=== PATIENT | male | born 1970 ===

== ENCOUNTER 2018-01-18 02:06 | Emergency (ER) | payer BC ==
[2018-01-18 02:32] VITALS: RESP 18
[2018-01-18] MEDS ORDERED: Sodium Chloride 0.9% 1,000 ML ONE (02:38)
[2018-01-18] MEDS ORDERED: Sodium Chloride 0.9% 1,000 ML IV ONE (02:39)
--- NOTE | 2018-01-18 03:15 | C.PDOC ---
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 Patient is also c/o cough for the past few days. Patient denies sore throat, earache, abdominal pain, nausea, vomiting, diarrhea, back pain, dysuria, hematuria. Patient with h/o of hemorrhoids also states he noticed minimal red blood today after having a bowel movement. Time Seen by Provider: 01/18/18 02:20 Chief Complaint (Nursing): Fever History Per: Patient History/Exam Limitations: no limitations Onset/Duration Of Symptoms: Hrs Current Symptoms Are (Timing): Still Present Location Of Pain: Throat Sick Contacts (Context): None Associated Symptoms: Fever, Chills, Cough Ear Symptoms: Bilateral: None Recent travel outside of the [place]: No Additional History Per: Patient Past Medical History Reviewed: Historical Data, Nursing Documentation, Vital Signs Vital Signs: Last Vital Signs Temp 103.1 F H 01/18/18 03:00 Pulse 102 H 01/18/18 02:11 Resp 18 01/18/18 02:11 BP 105/58 L 01/18/18 03:10 Pulse Ox 98 01/18/18 03:18 - Medical History PMH: No Chronic Diseases Surgical History: No Surg Hx Family History: States: Unknown Family Hx - Social History Hx Alcohol Use: Yes Hx Substance Use: No - Immunization History Hx Tetanus Toxoid Vaccination: No Hx Influenza Vaccination: No Hx Pneumococcal Vaccination: No Review Of Systems Constitutional: Positive for: Fever, Chills ENT: Negative for: Ear Pain, Nose Discharge, Nose Congestion, Throat Pain Cardiovascular: Negative for: Chest Pain Respiratory: Positive for: Cough. Negative for: Shortness of Breath Gastrointestinal: Positive for: Melena, Hematochezia. Negative for: Nausea, Vomiting, Abdominal Pain, Diarrhea, Rectal Pain Genitourinary: Negative for: Dysuria, Hematuria Musculoskeletal: Negative for: Neck Pain Skin: Negative for: Rash Neurological: Negative for: Weakness, Numbness, Headache, Dizziness Physical Exam - Physical Exam Appears: Non-toxic, No Acute Distress Skin: Normal Color, Warm, Dry Head: Atraumatic, Normacephalic Eye(s): bilateral: Normal Inspection, PERRL, EOMI Ear(s): Bilateral: Normal Nose: Normal, No Discharge Oral Mucosa: Moist Neck: Normal ROM, Supple (no meningeal signs) Chest: Symmetrical, No Tenderness Cardiovascular: Rhythm Regular Respiratory: Normal Breath Sounds, No Rhonchi, No Wheezing Gastrointestinal/Abdominal: Soft, No Tenderness Rectal: No Blood Streaked Stool, Hemorrhoids, Other (kofi fisurea at 4 o'clock position with small skin tag) Extremity: Normal ROM, No Tenderness, No Swelling Neurological/Psych: Oriented x3, Normal Speech, Normal Cognition Gait: Steady ED Course And Treatment - Laboratory Results Result Diagrams: 01/18/18 03:12 01/18/18 03:12 O2 Sat by Pulse Oximetry: 98 (ON RA) Pulse Ox Interpretation: Normal - Radiology CXR: Interpreted by Me, Viewed By Me (and dr bolden) CXR Interpretation: Yes: Infiltrates (?RLL). No: Pnemothorax Progress Note: Plan: - Labs. - CXR. - IV fluids. - Tylenol 975 mg PO/ motrin 600 mg. - UA. - Infleunza A B. - Rapid strep group\. All labs reviewed icl CXR and d/w patient. Pt is stable in no respiratory distress at this time,temp improved. Clinical signs and symptoms are not suggestive of sepsis, meningitis, UTI, intra-abdominal pathology, or cellulitis. Patient will be discharged home on PO abx, and instructed to follow up with his/her physician in 1-2 days without fail. Patient was instructed to return for any worsening symptoms, persistent fever, neck pain, SOB or vomiting. Reassessment Condition: Improved Disposition Counseled Patient/Family Regarding: Diagnosis, Need For Followup, Rx Given - Disposition Referrals: [facility] [Outside] Disposition Time: 04:13 Condition: STABLE Additional Instructions: Please increase PO fluids Take all prescribed medications Follow up with PMD or in clinic Advise SITZ baths/ High fiber in diet Return to ER if worse Prescriptions: Azithromycin [Zithromax] 250 mg PO DAILY #6 tab Benzonatate [Tessalon Perles] 100 mg PO TID #20 sgl Ibuprofen [Motrin] 600 mg PO Q6H #24 tab Instructions: Pneumonia in Adults Forms: [facility] (Latvian), Work Excuse Print Language: MARTINIQUAIS - Clinical Impression Clinical Impression: Pneumonia - 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 - Scribe Statement The provider has reviewed the documentation as recorded by the Scribe Daniel Hursta All medical record entries made by the Scribjennifer were at my direction and personally dictated by me. I have reviewed the chart and agree that the record accurately reflects my personal performance of the history, physical exam, medical decision making, and the department course for this patient. I have also personally directed, reviewed, and agree with the discharge instructions and disposition.
[2018-01-18 03:16] LABS: URINE BILIRUBIN NEGATIVE (NEGATIVE); URINE BLOOD NEGATIVE (NEGATIVE); URINE CLARITY Clear (Clear); URINE COLOR Yellow (YELLOW); URINE GLUCOSE (UA) NORMAL (Normal); URINE LEUKOCYTE ESTERASE NEG Leu/uL (Negative); URINE PROTEIN NEGATIVE (NEGATIVE)
[2018-01-18 03:16] LABS: BASO % 0.4 % (0.0-2.0); EOS # 0.1 K/uL (0.0-0.7); EOS % 0.9 % (0.0-4.0); HEMOGLOBIN 14.9 g/dL (12.0-18.0); LYMPH # 0.7 K/uL (1.0-4.3); MEAN CELL VOLUME 85.8 fL (80.0-94.0); MEAN CORPUSCULAR HEMOGLOBIN 30.3 pg (27.0-31.0); MEAN CORPUSCULAR HGB CONC 35.4 g/dL (33.0-37.0); MEAN PLATELET VOLUME 7.8 fL (7.2-11.7); MONO # 0.1 K/uL (0.0-0.8); MONO % 0.9 % (0.0-10.0); NEUT # 5.6 K/uL (1.8-7.0); NEUT % 86.8 % (50.0-75.0); NRBC % 0.1 % (0.0-2.0); RBC 4.92 Mil/uL (4.40-5.90); RED CELL DISTRIBUTION WIDTH 14.1 % (11.5-14.5); WHITE BLOOD COUNT 6.5 K/uL (4.8-10.8)
[2018-01-18 03:50] LABS: ALB/GLOB RATIO 1.1 (1.0-2.1); ALBUMIN 3.6 g/dL (3.5-5.0); ALT/SGPT 24 U/L (21-72); AST/SGOT 31 U/L (17-59); BLOOD UREA NITROGEN 15 mg/dL (9-20); CALCIUM 8.5 mg/dl (8.6-10.4); GFR AFRICAN-AMERICAN > 60; GFR NON-AFRICAN AMERICAN > 60
[2018-01-18 04:00] VITALS: BP 99/62; PULSE 82; TEMP 102.9
[2018-01-18 04:01] VITALS: O2SAT 98
--- NOTE | 2018-01-18 07:34 | RAD ---
Chest x-ray two views History: Shortness of breath. Comparison: None available. Findings: Mild venous congestion. Right hilar prominence. Heart size within normal limits. Impression: Mild venous congestion. Right hilar prominence.
== END 2018-01-18 04:27 | disposition home or self-care (01) ==
LOC: SUPCPDRO 02:06 → C.ER 02:06
DX: J18.9 Pneumonia, unspecified organism (principal)
CPT/HCPCS: 71046; 80053; 81001; 85025; 87070; 87430; 87804; 99285; J7040